=== PATIENT | female | born 1990 | race Caucasian/White ===

== ENCOUNTER 2018-01-09 09:31 | Emergency (ER) | payer MEDICAID ==
[~2018-01-09] VITALS: Ht 157.5 cm; Wt 90.7 kg
[~2018-01-09 09:31] MED LIST: ANTIPYRINE-BENZ14 ML OT; AUGMENTIN 875875 MG PO
[2018-01-09] MEDS ORDERED: NORCO 5-325 TA1 EACH PO (10:05)
[2018-01-09 10:20] VITALS: BP 142/77
== END 2018-01-09 10:21 | disposition home or self-care (01) ==
LOC: M.ERS 09:31
DX: L02.31 Cutaneous abscess of buttock (principal); F17.210 Nicotine dependence, cigarettes, uncomplicated

== ENCOUNTER 2018-08-31 16:35 | Emergency (ER) | payer OTHER, MEDICAID ==
[~2018-08-31] VITALS: Ht 160 cm; Wt 90.7 kg
[~2018-08-31 16:35] MED LIST changes: +NORCO 5-325 TA1 EACH PO
[2018-08-31] MEDS ORDERED: BACTRIM DS TAB1 EACH PO (16:58)
[2018-08-31 17:12] VITALS: BP 122/89
== END 2018-08-31 17:13 | disposition home or self-care (01) ==
LOC: M.ERS 16:35
DX: L05.01 Pilonidal cyst with abscess (principal); F17.210 Nicotine dependence, cigarettes, uncomplicated

== ENCOUNTER 2018-09-02 18:23 | Emergency (ER) | payer OTHER, MEDICAID ==
[~2018-09-02] VITALS: Ht 157.5 cm; Wt 90.7 kg
[~2018-09-02 18:23] MED LIST changes: +BACTRIM DS TAB1 EACH PO
[2018-09-02] MEDS ORDERED: TRAMADOL 50 MG50 MG PO (20:01)
[2018-09-02 20:15] VITALS: BP 117/87
== END 2018-09-02 20:16 | disposition home or self-care (01) ==
LOC: M.ERS 18:23
DX: L05.01 Pilonidal cyst with abscess (principal); F17.210 Nicotine dependence, cigarettes, uncomplicated

== ENCOUNTER 2020-04-07 20:09 | Emergency (ER) | payer OTHER, MEDICAID ==
[~2020-04-07] VITALS: Ht 157.5 cm; Wt 83.9 kg
[~2020-04-07 20:09] MED LIST changes: +TRAMADOL 50 MG50 MG PO
[2020-04-07] MEDS ORDERED: PRILOSEC OTC20 MG PO (20:23)
[2020-04-07] MEDS ORDERED: NORCO 5-325 TA1 EAC2 PO (21:16)
[2020-04-07 21:39] VITALS: BP 144/90
== END 2020-04-07 21:39 | disposition home or self-care (01) ==
LOC: M.ERS 20:09
DX: S63.591A Other specified sprain of right wrist, initial encounter (principal); S53.491A Other sprain of right elbow, initial encounter; F17.210 Nicotine dependence, cigarettes, uncomplicated; W01.0XXA Fall on same level from slipping, tripping and stumbling without subsequent striking against object, initial encounter; Y93.89 Activity, other specified; Y92.89 Other specified places as the place of occurrence of the external cause; Y99.8 Other external cause status

== ENCOUNTER 2020-09-03 12:47 | Emergency (ER) | payer OTHER, MEDICAID ==
[~2020-09-03] VITALS: Ht 157.5 cm; Wt 90.7 kg
[~2020-09-03 12:47] MED LIST changes: +NORCO 5-325 TA1 EAC2 PO; +PRILOSEC OTC20 MG PO
[2020-09-03] MEDS ORDERED: IBU600 MG PO (15:06)
[2020-09-03] MEDS ORDERED: HYDROCODON-ACE1 EAC7 PO (15:14)
[2020-09-03 15:22] VITALS: BP 100/70
== END 2020-09-03 15:22 | disposition home or self-care (01) ==
LOC: M.ERS 12:47
DX: S76.012A Strain of muscle, fascia and tendon of left hip, initial encounter (principal); S39.011A Strain of muscle, fascia and tendon of abdomen, initial encounter; F17.210 Nicotine dependence, cigarettes, uncomplicated; W18.39XA Other fall on same level, initial encounter; Y93.89 Activity, other specified; Y92.89 Other specified places as the place of occurrence of the external cause; Y99.8 Other external cause status